=== PATIENT | female | born 1970 | race Caucasian/White ===

== ENCOUNTER 2020-04-22 06:41 | Day surgery (SDC) | payer BC, OTHER, SELFPAY ==
[2020-04-22] MEDS ORDERED: Propofol 200 MG/20 ML SDV IV ONE (06:42)
[2020-04-22] MEDS ORDERED: Midazolam 1 MG/ML 2 ML SDV IV ONE (06:42)
[2020-04-22] MEDS ORDERED: Lactated Ringers 1,000 ML IV SCH (06:45)
[2020-04-22] MEDS ORDERED: Sodium Chloride 0.9% 10 ML Syringe FLUSH PRN (06:45)
--- NOTE | 2020-04-22 08:12 | PCM.OPNOTE ---
- General Post-Op/Procedure Note Date of Surgery/Procedure: 04/22/20 Operative Procedure(s): c scope Findings: diverticulosis internal hemorrhoids Pre Op Diagnosis: bleeding per rectum Post-Op Diagnosis: diverticulosis. internal hemorrhoids Anesthesia Technique: MAC Primary Surgeon: Ra Dunn Anesthesia Provider: Mary Grace Torres Pathology: none Complications: None Condition: Good Free Text/Narrative:: see dictation
--- NOTE | 2020-04-26 15:13 | OR ---
DATE OF OPERATION: 04/22/2020 SURGEON: Ra Dunn MD PROCEDURE PERFORMED: Colonoscopy. PREOPERATIVE DIAGNOSIS: Bleeding per rectum. POSTOPERATIVE DIAGNOSIS: Sigmoid diverticulosis and internal hemorrhoids. INDICATIONS FOR PROCEDURE: This is a 49-year-old white female who presents for colonoscopy. She has a history of rectal bleeding. She was offered and accepted C-scope. DESCRIPTION OF OPERATION: After an excellent IV sedation was administered, digital rectal exam was performed. No marked abnormality was noted. Flexible colonoscope was inserted and advanced to the cecum. The prep was excellent. Following findings were noted: Ascending colon, unremarkable. Transverse colon, unremarkable. Descending colon, unremarkable. Sigmoid, occasional diverticula. Rectum, unremarkable. Anus, she appears to have grade 2 internal hemorrhoids. No active bleeding noted. The patient tolerated the procedure well. RECOMMENDATIONS: Follow up on a p.r.n. basis for possible banding of her hemorrhoids. Otherwise, repeat colonoscopy in 10 years. /[id number] /KAYODE
== END 2020-04-22 09:36 | disposition home or self-care (01) ==
LOC: FB.SDS 06:41
PROVIDERS: ATTEND Surgery
DX: K64.1 Second degree hemorrhoids (principal); K57.30 Diverticulosis of large intestine without perforation or abscess without bleeding; K62.5 Hemorrhage of anus and rectum; F41.9 Anxiety disorder, unspecified; I50.20 Unspecified systolic (congestive) heart failure; F32.9 Major depressive disorder, single episode, unspecified; E11.9 Type 2 diabetes mellitus without complications; Z79.84 Long term (current) use of oral hypoglycemic drugs; Z79.899 Other long term (current) drug therapy; Z83.71 Family history of colonic polyps
CPT/HCPCS: 45378; 82962; J2250; J2704; J7120

== ENCOUNTER 2021-07-01 05:06 | Emergency (ER) | payer OTHER ==
[2021-07-01] MEDS ORDERED: Amiodarone 150 MG/3 ML SDV IVPUSH ONE (05:09)
[2021-07-01] MEDS ORDERED: Heparin Sodium 5,000 Units/ML Vial ONE (05:31)
--- NOTE | 2021-07-01 05:33 | EDM.PDOC ---
ED HPI GENERAL MEDICAL PROBLEM - General Chief Complaint: CPR in Progress Stated Complaint: cardiac arrest Time Seen by Provider: 07/01/21 05:06 Source of Information: Reports: EMS, Family, Police History Limitations: Reports: Altered Mental Status - History of Present Illness INITIAL COMMENTS - FREE TEXT/NARRATIVE: Brought in by EMS woke to her shaking in bed and shortly after noted she was unresponsive Brought her down from bed and started CPR Called EMS : police arrived continued till EMS arrived and had to give her EPI and 3 shocks ( used AED) unsure of rhythm at the time No pulse was present initially and then with Epi got pulse of 125 About loading her on rig she lost pulse and CPR had to be done again, got pulse without need of medications Enroute lost pulse once more and had to be given Epinephrine on arrival [place] 93 BP in 80's systolic EKG obtained , faxed to [facility], helicopter called Pt given Amiodarone 300mg Call made to [facility] again and discussed with heater operator: pt has history of Cardiomyopathy EKG changes new. Heparin ordered Not able to give pt Brilinta ( intubated) Dr Snyder accepted pt , requested she be transported [facility] to [facility] Delay in transportation : Flight not able to get her for one hour( initial ETA given) Onset: Today Onset Date: 07/01/21 Onset Time: 04:30 Location: Reports: Chest Improves with: Reports: Medication Context: Reports: Other Associated Symptoms: Reports: Other (LOC) Treatments COIL TAPER: Reports: CPR, EKG, Intubation, IV/IO, Oxygen, See EMS Report, Other (see below) (had 2 doses of epinephrine total) - Related Data Allergies Allergy/AdvReac Type Severity Reaction Status Date / Time No Known Allergies Allergy Verified 04/22/20 07:20 Home Meds: Home Meds Eplerenone [Inspra] 50 mg PO DAILY 04/21/20 [History] Furosemide [Lasix] 40 mg PO DAILY 04/21/20 [History] Sacubitril/Valsartan [Entresto 97 mg-103 mg Tablet] 1 each PO BID 04/21/20 [History] Venlafaxine [Effexor XR] 150 mg PO DAILY 04/21/20 [History] busPIRone HCl [Buspirone HCl] 7.5 mg PO BID 04/21/20 [History] carvediloL [Coreg] 25 mg PO BID 04/21/20 [History] metFORMIN [Glucophage] 500 mg PO BIDMEALS 04/21/20 [History] Past Medical History Cardiovascular History: Reports: Cardiomyopathy, Heart Failure Other Cardiovascular History: LBBB 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: FIBROADENOMA OF LEFT BREAST/ HYSTEROSCOPY W/ ENDOMETRIAL ABLATION Other Musculoskeletal History: DERMATOFIBROMA OF CALF Psychiatric History: Reports: Anxiety - Past Surgical History Other HEENT Surgeries/Procedures: TEETH EXTRACTION Oncologic Surgical History: Reports: Biopsy of Breast, Lumpectomy Social & Family History - Caffeine Use Caffeine Use: Reports: Coffee ED ROS GENERAL - Review of Systems Review Of Systems: Unable To Obtain Reason Not Obtained: pt is intubated ED EXAM, CPR - Physical Exam Exam: See Below Limited By: Unresponsive General Appearance: No Apparent Distress Eye Exam: Bilateral Eye: EOMI Throat/Mouth: Normal Oropharynx Head: Atraumatic, Normocephalic Respiratory Chest: No Respiratory Distress, Normal Breath Sounds, Other (pt bbeing bagged) Cardiovascular: No Rub GI/Abdominal Exam: Soft, Non-Tender Extremities: No Pedal Edema, Other (IO in left lower extremity) Neurological: Unresponsive Skin Exam: Warm, Dry, Intact ED CPR PROCEDURES - Endotracheal Intubation Time of Intubation: 06:40 ET Intubation Indication: Cardiac Arrest Tube Secured By: Other (Flight nurse) #1 Interpretation EKG Date: 07/01/21 Time: 05:00 Rhythm: NSR Rate (Beats/Min): 92 [place]: LAD-Left [place] Deviation P-Wave: Variable QRS: LBBB ST-T: Elevated QT: Normal Comparison: NA - No Prior EKG EKG Interpretation Comments: possible CA, LBBB #2 Interpretation EKG Date: 07/01/21 Time: 05:38 Rhythm: NSR Rate (Beats/Min): 66 [place]: LAD-Left [place] Deviation P-Wave: Variable QRS: Normal ST-T: Depressed QT: Normal Comparison: Change From Previous EKG EKG Interpretation Comments: Possible CA, changes due to intervention done so far Course - Orders/Labs/Meds Orders: Active Orders 24 hr Category Date Time Status EKG Documentation Completion [RC] ASDIRECTED Care 07/01/21 05:48 Active EKG Documentation Completion [RC] ASDIRECTED Care 07/01/21 05:48 Active Art Catheter Insertion [Insert Urinary Catheter] [OM. Care 07/01/21 05:45 Ordered PC] Q24H Urinary Catheter Assessment [RC] QSHIFT Care 07/01/21 05:45 Active Chest 1V Frontal [CR] Stat Exams 07/01/21 05:37 Taken Norepinephrine [Levophed] 4 mg Med 07/01/21 06:00 Active Dextrose 5% in Water 246 ml IV TITRATE Sodium Chloride 0.9% [Normal Saline] 1,000 ml Med 07/01/21 05:45 Active IV ASDIRECTED EKG 12 Lead [EK] Routine Ther 07/01/21 05:48 Ordered EKG 12 Lead [EK] Routine Ther 07/01/21 05:48 Ordered Medication Orders Sodium Chloride (Normal Saline) 1,000 mls @ 100 mls/hr IV ASDIRECTED LISA Norepinephrine Bitartrate 4 mg (/ Dextrose/Water) 250 mls @ 7.5 mls/hr IV TITRATE LISA; Protocol Labs: Laboratory Tests 07/01/21 07/01/21 07/01/21 Range/Units 05:10 05:10 05:10 WBC 6.6 (3.0-10.3) x10-3/uL RBC 3.42 L (3.60-5.20) x10(6)uL Hgb 9.9 L (11.4-15.5) g/dL Hct 31.2 L (34.2-48.2) % MCV 91.4 (76.7-100.5) fL MCH 29.0 (23.9-33.9) pg MCHC 31.8 L (31.9-34.8) g/dL RDW 13.0 (12.3-16.5) % Plt Count 193 (151-488) x10(3)uL MPV 9.1 (7.1-12.4) fL Add Manual Diff Yes Neutrophils % (Manual) 15 L (46-82) % Band Neutrophils % 4 (0-6) % Lymphocytes % (Manual) 80 H (13-37) % Monocytes % (Manual) 1 L (4-12) % Sodium 139 (135-145) mmol/L Potassium 4.2 (3.5-5.3) mmol/L Chloride 103 (100-110) mmol/L Carbon Dioxide 22 (21-32) mmol/L BUN 27 H (7-18) mg/dL Creatinine 1.7 H (0.55-1.02) mg/dL Est Cr Clr Drug Dosing TNP Estimated GFR (MDRD) 32 L (>60) BUN/Creatinine Ratio 15.9 (9-20) Glucose 277 H (80-116) mg/dL Calcium 8.2 L (8.6-10.2) mg/dL Magnesium (1.8-2.5) mg/dL Total Bilirubin 0.3 (0.1-1.3) mg/dL AST 56 H (5-25) IU/L ALT 74 H (12-36) U/L Alkaline Phosphatase 62 (56-112) IU/L Creatine Kinase (60-160) IU/L Troponin I 8.5 (4.0-60.3) pg/mL NT-Pro-B Natriuret Pep 1895 H* (<=125) pg/mL Total Protein 5.8 L (6.0-8.0) g/dL Albumin 2.8 L (3.5-5.2) g/dL Globulin 3.0 g/dL Albumin/Globulin Ratio 0.9 SARS-CoV-2 RNA (AICHA) (NEGATIVE) 07/01/21 07/01/21 07/01/21 Range/Units 05:10 05:10 05:40 WBC (3.0-10.3) x10-3/uL RBC (3.60-5.20) x10(6)uL Hgb (11.4-15.5) g/dL Hct (34.2-48.2) % MCV (76.7-100.5) fL MCH (23.9-33.9) pg MCHC (31.9-34.8) g/dL RDW (12.3-16.5) % Plt Count (151-488) x10(3)uL MPV (7.1-12.4) fL Add Manual Diff Neutrophils % (Manual) (46-82) % Band Neutrophils % (0-6) % Lymphocytes % (Manual) (13-37) % Monocytes % (Manual) (4-12) % Sodium (135-145) mmol/L Potassium (3.5-5.3) mmol/L Chloride (100-110) mmol/L Carbon Dioxide (21-32) mmol/L BUN (7-18) mg/dL Creatinine (0.55-1.02) mg/dL Est Cr Clr Drug Dosing Estimated GFR (MDRD) (>60) BUN/Creatinine Ratio (9-20) Glucose (80-116) mg/dL Calcium (8.6-10.2) mg/dL Magnesium 2.4 (1.8-2.5) mg/dL Total Bilirubin (0.1-1.3) mg/dL AST (5-25) IU/L ALT (12-36) U/L Alkaline Phosphatase (56-112) IU/L Creatine Kinase 70 (60-160) IU/L Troponin I (4.0-60.3) pg/mL NT-Pro-B Natriuret Pep (<=125) pg/mL Total Protein (6.0-8.0) g/dL Albumin (3.5-5.2) g/dL Globulin g/dL Albumin/Globulin Ratio SARS-CoV-2 RNA (AICHA) Negative (NEGATIVE) Meds: Medications Generic Name Dose Route Start Last Admin Trade Name Freq PRN Reason Stop Dose Admin Sodium Chloride 1,000 mls @ 100 mls/hr 07/01/21 05:45 Normal Saline IV ASDIRECTED LISA Norepinephrine Bitartrate 4 mg 250 mls @ 7.5 mls/hr 07/01/21 06:00 / Dextrose/Water IV TITRATE LISA Protocol 2 MCG/MIN Discontinued Medications Generic Name Dose Route Start Last Admin Trade Name Freq PRN Reason Stop Dose Admin Heparin Sodium (Porcine) Confirm 07/01/21 05:31 Heparin Sodium 5,000 Units/Ml Vial Administered 07/01/21 05:32 Dose 5,000 units .ROUTE .STK-MED ONE - Re-Assessments/Exams Free Text/Narrative Re-Assessment/Exam: 07/01/21 05:42 Call made to [facility] initially and then had flight called Repeat call to [facility] when pt arrived and BP was in the 80's systolic and pulse 93 has remained stable since then : BP 150/107 BP 90/65 07/01/21 05:49 Levophed ordered as prn BP <80 systolic Still waiting for helicopter 07/01/21 06:10 Air flight arrived from [facility] Pt BP dropped , started on Levophed Departure - Departure Time of Disposition: 06:45 Disposition: DC/Tfer to [facility] Clinical Impression: Cardiac arrest, Acute CA, Non-ischemic cardiomyopathy - Discharge Information *PRESCRIPTION DRUG MONITORING PROGRAM REVIEWED*: Not Applicable *COPY OF PRESCRIPTION DRUG MONITORING REPORT IN PATIENT RAJ: Not Applicable Forms: ED Department Discharge, Interfacility Transfer EMTALA - My Orders Last 24 Hours: My Active Orders 07/01/21 05:37 Chest 1V Frontal [CR] Stat 07/01/21 05:45 Art Catheter Insertion [Insert Urinary Catheter] [OM.PC] Q24H Urinary Catheter Assessment [RC] QSHIFT Sodium Chloride 0.9% [Normal Saline] 1,000 ml IV ASDIRECTED 07/01/21 05:48 EKG Documentation Completion [RC] ASDIRECTED EKG Documentation Completion [RC] ASDIRECTED EKG 12 Lead [EK] Routine EKG 12 Lead [EK] Routine 07/01/21 06:00 Norepinephrine [Levophed] 4 mg Dextrose 5% in Water 246 ml IV TITRATE - Assessment/Plan Last 24 Hours: My Active Orders 07/01/21 05:37 Chest 1V Frontal [CR] Stat 07/01/21 05:45 Art Catheter Insertion [Insert Urinary Catheter] [OM.PC] Q24H Urinary Catheter Assessment [RC] QSHIFT Sodium Chloride 0.9% [Normal Saline] 1,000 ml IV ASDIRECTED 07/01/21 05:48 EKG Documentation Completion [RC] ASDIRECTED EKG Documentation Completion [RC] ASDIRECTED EKG 12 Lead [EK] Routine EKG 12 Lead [EK] Routine 07/01/21 06:00 Norepinephrine [Levophed] 4 mg Dextrose 5% in Water 246 ml IV TITRATE
[2021-07-01] MEDS ORDERED: Heparin Sodium 5,000 Units/ML Vial IVPUSH ONE (05:34)
[2021-07-01] MEDS ORDERED: Sodium Chloride 0.9% 1,000 ML IV SCH (05:45)
[2021-07-01] MEDS ORDERED: Norepinephrine 4 MG in Dextrose 5% in Water 246 ML IV SCH ×2 (06:00)
--- NOTE | 2021-07-01 11:10 | CR ---
INDICATION: Cardiac arrest. CHEST, ONE VIEW: Portable supine view of the chest revealed the heart to be normal in size allowing for the AP supine positioning with poor inspiration. Overlying EKG leads are noted. A definite active infiltrate or effusion was not identified. No definite evidence of CHF is seen (supine imaging produces prominence of the upper lung field pulmonary vasculature physiologically). IMPRESSION: No acute process. MTDD
== END 2021-07-01 06:45 | disposition critical access hospital (66) ==
LOC: FB.ED 05:06
DX: I46.9 Cardiac arrest, cause unspecified (principal); I21.9 Acute myocardial infarction, unspecified; I42.8 Other cardiomyopathies; I44.7 Left bundle-branch block, unspecified; Z20.822 Contact with and (suspected) exposure to COVID-19
CPT/HCPCS: 31500; 36410; 36415; 36680; 51702; 71045; 80053; 82550; 83735; 83880; 84484; 85025; 87635; 92950; 93005; 96374; 96375; 99285; J0282; J1644; J7030; J7060; U0002